=== PATIENT | female | born 1975 | race Hispanic/Latino ===

== ENCOUNTER 2017-12-10 23:40 | Emergency (ER) | payer BC ==
[~2017-12-10] VITALS: Ht 152.4 cm; Wt 84.4 kg
[~2017-12-10 23:40] MED LIST: IRON325 M1 PO; PRENATAL VITAM1 EACH PO
[2017-12-10] MEDS ORDERED: [UNRECOGNIZED DRUG - OTHER] (23:58)
[2017-12-10] MEDS ORDERED: PROAIR RESPICL90 MCG (23:59)
[2017-12-10] MEDS ORDERED: ZITHROMAX250 MG PO (23:59)
== END 2017-12-11 00:27 | disposition home or self-care (01) ==
LOC: ED 23:40
DX: K29.70 Gastritis, unspecified, without bleeding (principal); T48.4X5A Adverse effect of expectorants, initial encounter
CPT/HCPCS: 99282

== ENCOUNTER 2019-06-18 08:30 | Day surgery (SDC) | payer BC ==
[~2019-06-18] VITALS: Ht 152.4 cm; Wt 84.4 kg
[~2019-06-18 08:30] MED LIST changes: +CALCIUM600 MG PO; +FISH OIL 1,0001 EAC2 NG; +PROAIR RESPICL90 MCG; +ZITHROMAX250 MG PO; +[UNRECOGNIZED DRUG - OTHER]
--- NOTE | 2019-06-18 11:52 | NUR ---
PATIENT RETURNS FROM XRAY. FAMILY AT BEDSIDE. CALL LIGHT W/IN REACH. IV RECONNECTED.
--- NOTE | 2019-06-18 14:58 | NUR ---
06/18/19 1458 Faby Larson 1447-PATIENT ARRIVED TO PACU ON 6L MASK RR EVEN. NONAROUSABLE. ORAL AIRWAY IN PLACE. SR. DRESSING TO LEFT BREAST CDI. IVF INFUSING. 1457-PATIENT OPENING EYES MOVING HEAD RAISING HANDS PUSHING ORAL AIRWAY OUT OF MOUTH. OPENS MOUTH AND ORAL AIRWAY REMOVED. ON 6L MASK. PATIENT IMMEDIATELY CLOSES EYES.
[2019-06-18] MEDS ORDERED: TYLENOL325 MG PO (15:09)
[2019-06-18] MEDS ORDERED: OXYCODON-ACETA1 EAC2 PO (15:10)
[2019-06-18] MEDS ORDERED: IBUPROFEN600 MG PO (15:10)
--- NOTE | 2019-06-18 16:17 | NUR ---
RETURNED TO ROOM AT BS.
--- NOTE | 2019-06-18 16:55 | NUR ---
2 RN ASSIST PATIENT UP TO THE BEDSIDE COMMODE. PATIENT IS STEADY ON HER FEET. PATIENT REPORTS SHE IS "A LITTLE" DIZZY. PATIENT KEEPS HER EYES CLOSED WHILE SHE IS UP. PATIENT VOIDS 600 ML CLEAR YELLOW URINE AND IS BACK IN BED. CALL LIGHT W/IN REACH. SCDS IN PLACE. SPOUSE AT THE BEDSIDE.
--- NOTE | 2019-06-18 17:54 | NUR ---
PATIENT TRANSFERED DOWN TO ROOM 119, REPORT GIVEN TO SALAS STAPLETON. SLIGHT BRUISING NOTED BY DAYA HANSNE TO LEFT BREAST.
--- NOTE | 2019-06-18 17:56 | NUR ---
PATIENT ARRIVED FROM DAY SURGERY AT 1745. PATIENT IS ABLE TO MOVE SELF FROM STRETCHER TO BED. PATIENT DENIES NAUSEA, ENDORSES SOME DIZZINESS. LEFT BREAST DRESSING IS INTACT WITH MEPILEX AND TEGADERM. FAMILY IN ROOM WITH PATIENT. DINNER ORDERED. DISCUSSED WITH FAMILY ABOUT PICKING UP PAIN MEDICATIONS AT PHARMACY BEFORE IT IS TOO LATE TONIGHT.
--- NOTE | 2019-06-18 18:45 | NUR ---
PATIENT TOERATED SOUP AND TOAST FOR DINNER. PATIENT ABLE TO SIT AT BEDSIDE WITH MILD DIZZINESS, STOOD PATIENT AND SHE BECAME VERY DIZZY. PAIN PRESCRIPTION GIVEN TO TO GO FILL. PLAN TO CALL DR. PATIÑO AND UPDATE. NURSE TO CALL DR. PATIÑO IF AT 2100 IF PATIENT IS UNABLE TO DISCHARGE HOME.
--- NOTE | 2019-06-18 20:07 | NUR ---
ROUNDED CHARGE. SEEMA RN IN THE ROOM. PATIENT AND FAMILY DENY ANY COMMENTS, QUESTIONS OR CONCERNS. NO NEEDS NOTED. CALL LIGHT IN REACH.
--- NOTE | 2019-06-18 20:08 | NUR ---
Up to chair, tolerated well, no c/o pain, no c/o n/v. Dressing R breast area in place. trace edema R hand, good CMS.
--- NOTE | 2019-06-18 21:25 | NUR ---
2049 - PT STATS SHE FEELS BETTER, NO LIGHTHEADNESS AND NO N/V OR DRY HEAVING. PT MET DC POST OP CRITERIA. 2099 - DC INSTRUCTIONS GIVEN VERBALLY AND ORALLY, STATED UNDERSTANDING. EXPLAINED IN THAI. MEPILEX DRESSING COVERED WITH OPSITE IN PLACE L UPPER LATERAL BREAST AREA, TENDER TO TOUCH, NO DRAINAGE. MEDICATED WITH 2 NORCO 7.5MG PO PRIOR TO DC, 6/10 L BREAST PAIN. PT HELPED WITH GETTING DRESSED. 2119 DC'D TIP INTACT. 2X[address] PATIÑO NOTIFIED VIA PHONE THAT PT HAS BEEN DC. 2124 - PT DC HOME WITH ALL BELONGINGS, DC WRITTEN INSTRUCTIONS AND APPOINTMENT TO BE SEEN BY DR PATIÑO 07/21. DRESSING INTAT L BREAST. PT DC VIA W/C TO PRIVATE CAR.
--- NOTE | 2019-06-20 17:19 | OR ---
[facility] [address], [place] [address] Signed DATE OF OPERATION: 06/18/2019 SURGEON: Sae Patiño MD PREOPERATIVE DIAGNOSIS: Left medial upper infiltrating ductal breast carcinoma. POSTOPERATIVE DIAGNOSES: 1. Left medial upper infiltrating ductal breast carcinoma. 2. Herndon lymph nodes negative for metastatic disease on frozen pathology. PROCEDURE PERFORMED: 1. Injection of methylene blue dye for sentinel lymph node identification. 2. Left axillary sentinel lymph node biopsy x2. 3. Left needle localized partial mastectomy, medial upper breast. ANESTHESIA: General LMA by Sae Manning CRNA and local 10 mL of 0.25% Marcaine with epinephrine. INDICATION: This 43-year-old woman is a patient of Roman Joshi and has undergone routine mammography over time. She is found to have an abnormality in the medial upper aspect of the left breast, which was further evaluated including ultrasound and ultimately a core biopsy by Dr. Berna Mcgraw confirming infiltrating ductal breast carcinoma. Receptors for HER-2/joann are negative and ER/NE receptor assessment is pending. She does have family history of breast cancer in two cousins and one maternal cousin and another paternal cousin. Her mother has no breast problems and a sister has no breast problems. She has no palpable lesion corresponding to the proven breast cancer. She is admitted at this time to undergo definitive excision (partial mastectomy) of the breast cancer, which was located about far from the areolar margin in the upper inner aspect of the left breast as well as sentinel lymph node biopsies, possible axillary dissection depending on the pathologic findings. The risks of bleeding, infection, cosmetic deformity, need for additional treatment (already planning radiation therapy postop), and other unforeseen complications were reviewed. Additionally reviewed was a likely risk of arm edema and some possibility that additional reexcision of the excision site might be required if a negative margin is not assured. FINDINGS: Good uptake with radionuclide was noted in the left axilla. Two relatively larger nodes Electronically Signed By: SAE PATIÑO MD 06/20/19 1719 PATIENT NAME: TREVOR GUTIERREZ OPERATIVE REPORT DATE OF : 77 REPORT #: [id number] PHYSICIAN: SAE PATIÑO MD PCP: DOMINGO MICHELLE PAC REPORT IS CONFIDENTIAL AND NOT TO BE RELEASED WITHOUT AUTHORIZATION [facility] [address] [place], [place] [address] Signed were identified as hot by radionuclide, but without much methylene blue dye uptake. The remaining axilla showed minimal continued radionuclide based on gamma probe. The lesion itself was not that far from the areolar margin in the upper inner aspect of the left breast. A needle localizing wire was used to fully identify and widely excise the area. Specimen and radiograph confirmed the lesion in question was within the biopsy specimen. Additional excision was undertaken of breast tissue on the deep inferior aspect as there was a slightly granular feel to it. As regard to the axilla, sentinel lymph nodes were found to be negative on frozen pathology. DESCRIPTION OF PROCEDURE: The patient was received from radiology suite, ultimately taken to the operating room, given a general anesthetic by LMA technique. Preoperative antibiotic Ancef was given. Sequential compression device stockings used and heparin subcutaneously administered. The wire emanated from the medial aspect of the left breast a few centimeters from the areolar margin. The direction of the needle was that towards the underlying periareolar space. The left breast and axilla were sprayed with a Betadine solution and draped sterilely. A gamma probe was placed into a sterile sheath and interrogation of the left axilla showed a markedly high uptake in a certain area and therefore a small transverse incision was made. The dissection was carried through the subcutaneous tissue. Not mentioned previously was the injection of 1 mL of methylene blue dye into the subepidermal area of the upper outer aspect of the left areolar margin. Some areas of blue dye were noted in the lymphatics and using the gamma probe dominantly, areas of axillary fat containing lymph nodes were identified and excised. Two separate areas were found to have high uptake. Both were marked for the pathologist's orientation. Clips were used to secure hemostasis in some of the small vessels in the area. Additional interrogation of the axilla showed no sign of significant uptake and dominant lymph nodes thus have been excised. The wound was then packed with gauze, awaiting the report from the pathologist for frozen assessment. Attention was turned towards the breast lesion itself. Wire emanating from the inner upper aspect of the left breast was gently palpated in the direction of the needle ascertained to be towards the areolar margin deeply. The areolar margin was stimulated and then marked and a curvilinear incision was made following the areolar margin. Dissection was carried through the dermis with electrocautery. A flap was developed medially ultimately upon parenchymal division and the identification of the localizing wire. The wire then emanated from the incision itself and an Allis clamp was used to grasp the breast tissue. Wide resection was undertaken with electrocautery in hopes of maintaining a clinically negative margin. Complete excision was ultimately undertaken Electronically Signed By: SAE PATIÑO MD 06/20/19 1719 PATIENT NAME: TREVOR GUTIERREZ OPERATIVE REPORT DATE OF : 77 REPORT #: [id number] PHYSICIAN: SAE PATIÑO MD PCP: DOMINGO MICHELLE PAC REPORT IS CONFIDENTIAL AND NOT TO BE RELEASED WITHOUT AUTHORIZATION [facility] [address] [place], [place] [address] Signed and the specimen passed for specimen radiograph. It was subsequently learned that the lesion was well within the excised tissue. Additional tissue was excised at the base of the deep wound, where there was a palpable granular texture to the parenchyma. It is not certain that this was malignant, but was slightly atypical and therefore, excised without hesitation. Hemostasis was assured with electrocautery. Wound was irrigated with sterile saline. Once hemostasis assured, the wound was closed in layers with parenchymal reapproximation from medial to lateral. This allowed for closure of the defect within the parenchyma of the breast. The skin was then closed with a running subcuticular 3-0 Vicryl. Steri-Strips were applied. Inspection of the left axilla showed no sign of bleeding. Frozen pathology returned showing no sign of metastatic disease to either of the two enlarged lymph nodes. Some minimal axillary parenchymal reapproximation was undertaken with 2-0 Vicryl and the skin was then closed with running subcuticular 3-0 Vicryl. Steri-Strips were applied to both incisions. A Mepilex silver sponge dressing and an OpSite were then applied. The patient was ultimately extubated and transferred to recovery room in good condition having suffered no complication. Sponge, needle, and counts are correct x3. MD SANDRO Suero/BARBIE /[id number] cc: Roman Mcgraw MD Copies: BERNA MCGRAW MD ~ Electronically Signed By: SAE PATIÑO MD 06/20/19 1719 PATIENT NAME: TREVOR GUTIERREZ OPERATIVE REPORT DATE OF : 77 REPORT #: [id number] PHYSICIAN: SAE PATIÑO MD PCP: DOMINGO MICHELLE PAC REPORT IS CONFIDENTIAL AND NOT TO BE RELEASED WITHOUT AUTHORIZATION
== END 2019-06-18 21:20 | disposition home or self-care (01) ==
LOC: DS 08:30 → EDSTATUS 09:30 → US 09:30 → DS 09:30 → MS 17:45 → DS 21:20
PROVIDERS: Surgery
PROC: 0HBU0ZZ Excision of Left Breast, Open Approach (ICD-10-PCS; principal; 2019-06-18 12:00)
PROC: 07B60ZX Excision of Left Axillary Lymphatic, Open Approach, Diagnostic (ICD-10-PCS; 2019-06-18 12:00)
DX: C50.212 Malignant neoplasm of upper-inner quadrant of left female breast (principal); Z17.0 Estrogen receptor positive status [ER+]; Z88.5 Allergy status to narcotic agent; Z80.3 Family history of malignant neoplasm of breast; Z79.899 Other long term (current) drug therapy
CPT/HCPCS: 00404; 19285; 38792; 76098; 76970; 77065; A9541; J0131; J0690; J1100; J1644; J1885; J2250; J2405; J2704; J2765; J3010; J7120; Q9968

== ENCOUNTER 2019-08-07 08:45 | Day surgery (SDC) | payer BC ==
[~2019-08-07] VITALS: Ht 152.4 cm; Wt 85.7 kg
[~2019-08-07 08:45] MED LIST changes: +IBUPROFEN600 MG PO; +OXYCODON-ACETA1 EAC2 PO; +TYLENOL325 MG PO
--- NOTE | 2019-08-07 12:12 | NUR ---
08/07/19 1212 Faby Larson 1205-PATIENT ARRIVED TO PACU ON 6L MASK RR EVEN. BP READING LOW REPOSITIONED CUFF ON RIGHT ARM AND IS 103/56. PATIENT REACTIVE TO VOICE DENIES PAIN OR NAUSEA. DRESSING TO LEFT BREAST CDI. SR
[2019-08-07] MEDS ORDERED: IBUPROFEN600 MG PO (12:27)
[2019-08-07] MEDS ORDERED: OXYCODON-ACETA1 EAC2 PO (12:27)
[2019-08-07] MEDS ORDERED: TYLENOL EXTRA500 MG PO (12:27)
--- NOTE | 2019-08-07 12:53 | NUR ---
1250: PATIENT BACK IN DAY SURGERY ROOM FROM PACU. C/O PAIN 12/08. DENIES NEED FOR PAIN MEDICATION AT THIS TIME. LEFT BREAST DRESSING CDI. VS CHECKED. IV SITE WNL. SCDs ON. ICE WATER PLACED AT BEDSIDE. CALL LIGHT WITHIN REACH. DAUGHTER AT BEDSIDE.
--- NOTE | 2019-08-07 13:34 | NUR ---
1320: VS CHECKED. PATIENT GIVEN APPLE JUICE AND SOUP REQUESTED. AT BEDSIDE. CALL LIGHT WITHIN REACH.
--- NOTE | 2019-08-07 14:04 | NUR ---
1400: PATIENT TOLERATED JUICE AND SOUP. VS CHECKED. LEFT BREAST DRESSING CDI. PATIENT ASSISTED OOB AND TO BATHROOM. GAIT STEADY. VOID 600 ML OF CLEAR YELLOW URINE. GAIT STEADY BACK TO ROOM. PATIENT GETTING DRESSED WITH HELP FROM .
--- NOTE | 2019-08-07 14:21 | NUR ---
1417: DISCHARGE INSTRUCTIONS GIVEN TO PATIENT AND . IV DC'D WNL. TIP INTACT. DRESSING APPLIED. PATIENT DISCHARGED TO HOME WITH VIA WHEELCHAIR.
--- NOTE | 2019-08-10 11:03 | OR ---
[facility] [address] [place], [place] [address] Signed DATE OF OPERATION: 08/07/2019 SURGEON: Sae Patiño MD PREOPERATIVE DIAGNOSES: 1. History of left breast cancer with recent left partial mastectomy and sentinel lymph node biopsies. 2. Negative margins on infiltrating ductal carcinoma (2.4 cm). 3. Negative, but narrow margin on ductal carcinoma of 0.5 cm. POSTOPERATIVE DIAGNOSES: 1. History of left breast cancer with recent left partial mastectomy and sentinel lymph node biopsies. 2. Negative margins on infiltrating ductal carcinoma (2.4 cm). 3. Negative, but narrow margin on ductal carcinoma of 0.5 cm. PROCEDURE: Left partial mastectomy (re-excision of excision biopsy cavity), left breast. ANESTHESIA: General LMA, Sae Manning CRNA; and local 10 mL of 0.25% Marcaine with epinephrine. INDICATION: This very pleasant 43-year-old woman was found to have a left-sided infiltrating ductal breast carcinoma. She underwent left partial mastectomy with sentinel lymph node biopsy on June 18, 2019. She remains a patient of KIAN Mata. The tumor was 2.4 cm in size, grade 2/3, ER positive, HER-2/joann negative. The dominant lesion was infiltrating ductal carcinoma. There was some ductal carcinoma in situ noted. The margins were all negative. However, the margin for the ductal carcinoma in situ component was not 2 mm or more, a recent recurrent standard for excision. The margin, though negative was only 0.5 mm. Full consideration about whether or not re-excision would be necessary has been undertaken. Concerns were raised by her radiation therapist, Dr. Sara Burton and discussion amongst us has been undertaken. My own view was that additional re-excision would unlikely be necessary. However, standard is for a 2 mm margin and ductal carcinoma in situ and a "no ink on tumor" margin for infiltrating ductal carcinoma. As the dominant lesion in fact was infiltrating ductal carcinoma and DCIS was found incidentally, I did not advocate re-excision. However, the patient is considered more fully with her in light of other opinions on this matter and wished to undergo re-excision. She is of course anticipating radiation therapy in the future. The risks of bleeding, infection, Electronically Signed By: SAE PATIÑO MD 08/10/19 1103 PATIENT NAME: TREVOR GUTIERREZ OPERATIVE REPORT DATE OF : 77 REPORT #: [id number] PHYSICIAN: SAE PATIÑO MD PCP: DOMINGO MICHELLE PAC REPORT IS CONFIDENTIAL AND NOT TO BE RELEASED WITHOUT AUTHORIZATION [facility] [address] [place], [place] [address] Signed cosmetic deformity, and so forth were reviewed with the patient and her . They understand and wished to proceed. FINDINGS: As is typical, she had some inflammatory changes related to the previous excision site. Wide excision was undertaken including all the biopsy cavity. The excision extended across the midline laterally. The specimen was oriented with sutures. A sizable amount of tissue was excised to provide for a negative margin more assuredly. Parenchymal reapproximation was undertaken to minimize a defect, although definitely altered from her preoperative appearance is cosmetically good overall. DESCRIPTION OF PROCEDURE: The patient was brought to the operating room and given a general anesthetic by LMA technique. Preoperative antibiotic Ancef was given. Sequential compression device stockings were used and heparin subcutaneously administered. The left breast and chest wall were prepared with a Betadine based solution and draped sterilely. A normal appearing breast was noted with a very subtle incision on the medial aspect of the left areola. The small axillary incision was healing well also. The incision was made in the previous site in the areolar margin. Dissection carried through the dermis with sharp and electrocautery dissection. The area of excision was in the medial aspect of the areolar margin. Excision was undertaken with electrocautery maintaining a wide margin around the biopsy cavity itself. Additional extension of excision was undertaken medially where it is such that the margin was close. This was not a simple matter obviously given inflammation, size of the excision size before and so forth. Ultimately, complete excision was undertaken and the specimen was marked and oriented for future reference with pathologist. The wound was then copiously irrigated with sterile saline. Small bleeding vessels were secured with electrocautery. Once hemostasis was assured, some Pauline was applied to the biopsy cavity. Parenchymal reapproximation was undertaken with 2-0 Vicryl so as to minimize the cavity defect. The skin itself was closed with interrupted 3-0 Vicryl in deep dermal layer. Good cosmesis was maintained, though optimal amount of cosmesis of course was prior to the excision itself today. Steri-Strips were applied as was Mepilex, silver sponge dressing, and an OpSite. The patient was ultimately extubated and transferred to recovery room in good condition having suffered no complication. Sponge, needle, and instrument counts reported as correct x3. Sae Patiño MD Electronically Signed By: SAE PATIÑO MD 08/10/19 1103 PATIENT NAME: TREVOR GUTIERREZ OPERATIVE REPORT DATE OF : 77 REPORT #: [id number] PHYSICIAN: SAE PATIÑO MD PCP: DOMINGO MICHELLE PAC REPORT IS CONFIDENTIAL AND NOT TO BE RELEASED WITHOUT AUTHORIZATION [address] [place] [address] Signed /BARBIE /[id number] cc: KIAN Mata MD Kristen Rigert, MD Copies: BENJAMIN WALKER MD ~ Electronically Signed By: SAE PATIÑO MD 08/10/19 1103 PATIENT NAME: TREVOR GUTIERREZ OPERATIVE REPORT DATE OF : 77 REPORT #: [id number] PHYSICIAN: SAE PATIÑO MD PCP: DOMINGO MICHELLE PAC REPORT IS CONFIDENTIAL AND NOT TO BE RELEASED WITHOUT AUTHORIZATION
--- NOTE | 2019-08-14 13:59 | PATH ---
[facility] [address] [place], [place] [address] Signed SPECIMEN(S): A LEFT BREAST SPECIMEN SOURCE: A. LEFT BREAST CLINICAL HISTORY: Left breast ca. Re-excision left breast mass. Specimen Time to Fixation- 08/07/2019 11:35:00 AM FINAL PATHOLOGIC DIAGNOSIS: Left breast, re-excision of left breast mass: - No residual invasive or in-situ carcinoma present. - Other pathologic findings: - Extensive post-operative change (fibrosis, granulomatous inflammation and fat necrosis). - Focal fibrocystic disease with the features of fibrosis, cyst formation, usual ductal hyperplasia. COMMENT: The patient has a previous diagnosis of invasive ductal carcinoma, 1 cm from nipple 10 o'clock region ([id number] -- 06/10/2019). At that time estrogen receptor was performed and reported as positive 31.6% of tumor cells positive, progesterone receptor 42.7% positive and Ki-67 index 9.3%. Negative for HER2 amplification by FISH. As part of [facility]' Quality Improvement Program, this case was reviewed by another member of our pathology staff. CATERINA:NRT:cml:C2NR MICROSCOPIC EXAMINATION: Histologic sections of all submitted blocks are examined by light microscopy. These findings, together with the gross examination, support the pathologic diagnosis. There were a couple of tight glandular clusters in block A6. Immunostain for smooth muscle myosin heavy chains is obtained along with an appropriately positive control. All glandular clusters have a immunostained basal cell layer, consistent with noninvasive benign status. GROSS DESCRIPTION: The specimen, labeled "CZ, left breast re-excision," is received in formalin and consists of a 46.0 g, 7.0 x 6.5 x 4.0 cm aggregate of pappas-yellow to pappas-pink fibroadipose tissue with the largest PATIENT NAME: TREVOR GUTIERREZ PATHOLOGY DATE OF : 77 REPORT #: [id number] PHYSICIAN: GALINDO PATHOLOGY PCP: DOMINGO MICHELLE PAC REPORT IS CONFIDENTIAL AND NOT TO BE RELEASED WITHOUT AUTHORIZATION [facility] [address] [place], [place] [address] Signed portion measuring 6.5 x 5.0 x 4.0 cm and oriented as "short = superior, double = deep, long = lateral." The oriented portion is ragged with a defect on the anterior aspect, opening into a 3.0 x 2.0 x 2.0 cm possible cavity and an additional 3.0 cm defect on the deep aspect, opening into the possible cavity. The oriented portion is inked as follows: Superior = blue, inferior = green, medial = red, lateral = orange, anterior = yellow, deep = black. Sectioning of the larger portions shows pappas-yellow to pappas-white and fibrous cut surfaces with no discrete lesion grossly identified. The additional portions of adipose tissue are inked blue and serially sectioned to show pappas-yellow to pappas-white fibroadipose tissue with no discrete lesions identified. The specimen is entirely submitted as follows: (A1-A18) oriented specimen, lateral to medial (with lateral and medial margins perpendicularly sectioned) (A19-A26) additional portions of tissue Cold Ischemic Time: 1 minute. Formalin Time: Approximately 22 hours. AR (under the direct supervision of a pathologist) The Gross Description was prepared using a voice recognition system. The report was reviewed for accuracy; however, sound-alike word errors, addition and/or deletions may occur. If there is any question about this report, please contact Client Services. PERFORMING LABORATORY: The technical component was performed by [facility], [address] [place] [id number] (Local Government Legislator: Saira Palomino MD; CLIA# [id number]). Professional interpretation was performed by [place] [address] (Local Government Legislator: Vinicio Cabrera MD; CLIA# [id number]). Diagnostician: Vinicio Cabrera MD Pathologist Electronically Signed 08/14/2019 Copies: ~ PATIENT NAME: TREVOR GUTIERREZ PATHOLOGY DATE OF : 77 REPORT #: [id number] PHYSICIAN: GALINDO LEMONS PCP: DOMINGO MICHELLE PAC REPORT IS CONFIDENTIAL AND NOT TO BE RELEASED WITHOUT AUTHORIZATION
== END 2019-08-07 14:17 | disposition home or self-care (01) ==
LOC: DS 08:45 → OPS 08:45 → DS 09:45 → OPS 14:17
PROVIDERS: Surgery
PROC: 0HBU0ZZ Excision of Left Breast, Open Approach (ICD-10-PCS; principal; 2019-08-07 09:45)
DX: N60.12 Diffuse cystic mastopathy of left breast (principal); N60.32 Fibrosclerosis of left breast; N64.1 Fat necrosis of breast; Z85.3 Personal history of malignant neoplasm of breast; Z90.12 Acquired absence of left breast and nipple; Z88.5 Allergy status to narcotic agent; Z80.3 Family history of malignant neoplasm of breast; Z79.899 Other long term (current) drug therapy
CPT/HCPCS: 00404; J0131; J0690; J1100; J1644; J1885; J2250; J2405; J2704; J2765; J3010; J7120

== ENCOUNTER 2024-02-28 09:39 | Day surgery (SDC) | payer BC ==
[~2024-02-28] VITALS: Ht 154.9 cm; Wt 87.2 kg
[~2024-02-28 09:39] MED LIST changes: +ARIMIDEX1 MG PO; +BIOTIN1000 MCG PO; +IBLOOD GLUCOSE TEST STRIP 1 EA TEST VI PRN; +LACTATED RINGER'S 1,000 ML IV SCH; +LIDOCAINE HCL 1% 5 ML SDV INJ ONE; +MIDAZOLAM HCL 5 MG/5 ML VIAL IV PRN; +TYLENOL EXTRA500 MG PO; +ZOLADEX3.6 MG SUB-Q; +fentaNYL citrate 100 MCG/2 ML VIAL IV PRN
[2024-02-28 09:59] VITALS: BP 153/79
[2024-02-28] MEDS ORDERED: MIDAZOLAM HCL 5 MG/5 ML VIAL ONE (10:01)
[2024-02-28] MEDS ORDERED: fentaNYL citrate 100 MCG/2 ML VIAL ONE (10:02)
--- NOTE | 2024-02-28 11:12 | NUR ---
02/28/24 1112 Niko Hidalgo 1105: PT ARRIVED TO PACU VIA STRETCHER. PT AROUSABLE TO TOUCH AND NAME. PT ON 3L NC. PT ABDOMEN SOFT TO TOUCH 1107: PT TITRATED TO ROOM AIR AT THIS TIME. PTS SATS 97%. PT REMAINS DROWSY.
[2024-02-28 11:41] VITALS: BP 115/66
--- NOTE | 2024-03-01 09:47 | OR ---
[facility] [address] [place], [place] [address] Signed DATE OF OPERATION: 02/28/2024 SURGEON: Sae Patiño MD PREOPERATIVE DIAGNOSIS: Colon screening. POSTOPERATIVE DIAGNOSIS: Small polyp of sigmoid (excised). PROCEDURE: Total colonoscopy to cecum with cold morcellation polypectomy x1. ANESTHESIA: Intravenous sedation; fentanyl 150 mcg, Versed 6 mg. INDICATION: This 48-year-old woman is a patient of KIAN Mata. She has never had colonoscopy in the past. She has no symptoms of bleeding, diarrhea, or constipation and no family history of colon cancer. She is admitted at this time to undergo colonoscopy for screening. She understands the risk of bleeding, infection, and perforation. FINDINGS: The prep was excellent. Complete colonoscopy was undertaken to the cecum with full intubation of the cecum. There was a small polyp of the sigmoid, which was excised with cold morcellation technique. The remaining colon was normal. PROCEDURE IN DETAIL: The patient was brought to the endoscopy suite and placed in lateral decubitus position, given intravenous sedation to the point of slurred speech and nystagmus. Digital rectal examination was normal. An Olympus video colonoscope was passed in the rectum and manipulated throughout the colon ultimately intubating the cecum itself. The ileocecal valve and appendiceal orifice were normal. Scope was withdrawn from that point. Examination throughout showed no sign of abnormality until the sigmoid where a small adenomatous appearing polyp was noted. This was excised with cold morcellation technique without problem. A complete excision was accomplished. Scope was withdrawn. Retroflexed view was normal. Scope was removed. The patient was taken to recovery room in good condition clean. Electronically Signed By: SAE PATIÑO MD 03/01/24 0947 PATIENT NAME: TREVOR GUTIERREZ OPERATIVE REPORT DATE OF : 77 REPORT #: [id number] PHYSICIAN: SAE PATIÑO MD PCP: DOMINGO MICHELLE PAC REPORT IS CONFIDENTIAL AND NOT TO BE RELEASED WITHOUT AUTHORIZATION [facility] [address] [place], [place] [address] Signed CONCLUDING DIAGNOSIS: Small polyp of sigmoid. PLAN: I recommend repeat colonoscopy in 3-5 years, sooner if clinically indicated. She will return to the ongoing care of KIAN Mata. MD SANDRO Suero/BARBIE /[id number] cc: Domingo Michelle PA-C Copies: ~ Electronically Signed By: SAE PATIÑO MD 03/01/24 0947 PATIENT NAME: TREVOR GUTIERREZ OPERATIVE REPORT DATE OF : 77 REPORT #: [id number] PHYSICIAN: SAE PATIÑO MD PCP: DOMINGO MICHELLE PAC REPORT IS CONFIDENTIAL AND NOT TO BE RELEASED WITHOUT AUTHORIZATION
--- NOTE | 2024-03-05 11:10 | PATH ---
[facility] [address] [place], [place] [address] Signed SPECIMEN(S): A SIGMOID POLYP SPECIMEN SOURCE: A. SIGMOID POLYP CLINICAL HISTORY: Initial screening colonoscopy, small polyp x 1 sigmoid colon FINAL PATHOLOGIC DIAGNOSIS: Sigmoid polyp, biopsy: - Hyperplastic polyp. AMB MICROSCOPIC EXAMINATION: Histologic sections of all submitted blocks are examined by light microscopy. These findings, together with the gross examination, support the pathologic diagnosis. GROSS DESCRIPTION: The specimen, labeled and designated "Samm sigmoid polyp," is received in formalin and consists of one pappas soft tissue fragment, 0.2 cm. Entirely submitted in (A1). VB (under the direct supervision of a pathologist) The Gross Description was prepared using a voice recognition system. The report was reviewed for accuracy; however, sound-alike word errors, addition and/or deletions may occur. If there is any question about this report, please contact Client Services. ADDITIONAL NOTES: Immunohistochemical and/or in situ hybridization studies if performed in this case included appropriate positive controls that reacted as expected. This test was developed and its performance characteristics determined by [facility]. It has not been cleared or approved by the U.S. Food and Drug Administration. The FDA has determined that such clearance or approval is not necessary. This test is used for clinical purposes. It should not be regarded as investigational or for research. [facility] is certified under the Clinical Laboratory Improvement Amendments of 1988 (CLIA) as qualified to perform high complexity clinical laboratory testing. PATIENT NAME: TREVOR GUTIERREZ PATHOLOGY DATE OF : 77 REPORT #: [id number] PHYSICIAN: GALINDO LEMONS PCP: DOMINGO MICHELLE PAC REPORT IS CONFIDENTIAL AND NOT TO BE RELEASED WITHOUT AUTHORIZATION [facility] [address] [place], [place] [address] Signed PERFORMING LABORATORY: Technical component was performed by [facility], [address] [place] [id number] (CLIA# [id number]). Professional interpretation was performed by [facility] - [address] [id number] Diagnostician: Saira Palomino MD Pathologist Electronically Signed 03/05/2024 Copies: ~ PATIENT NAME: TREVOR GUTIERREZ PATHOLOGY DATE OF : 77 REPORT #: [id number] PHYSICIAN: GALINDO LEMONS PCP: DOMINGO MICHELLE PAC REPORT IS CONFIDENTIAL AND NOT TO BE RELEASED WITHOUT AUTHORIZATION
== END 2024-02-28 11:50 | disposition home or self-care (01) ==
LOC: DS 09:39 → OPS 09:39 → DS 13:00
PROVIDERS: ATTEND Surgery
PROC: 0DBE8ZX Excision of Large Intestine, Via Natural or Artificial Opening Endoscopic, Diagnostic (ICD-10-PCS; principal; 2024-02-28 13:00)
DX: Z12.11 Encounter for screening for malignant neoplasm of colon (principal); K63.5 Polyp of colon; C50.212 Malignant neoplasm of upper-inner quadrant of left female breast; Z88.5 Allergy status to narcotic agent; Z79.899 Other long term (current) drug therapy
CPT/HCPCS: 84703; 99153; G0500; J2250; J3010; J7121